=== PATIENT | female | born 1950 | race Caucasian/White ===

== ENCOUNTER 2018-04-29 07:52 | Outpatient (CLI) | payer OTHER | END 2018-04-29 08:03 | disposition home or self-care (01) | LOC: MAMO-SONO 07:52 | DX: Z12.31 Encounter for screening mammogram for malignant neoplasm of breast (principal); Z87.898 Personal history of other specified conditions; N60.11 Diffuse cystic mastopathy of right breast; N60.12 Diffuse cystic mastopathy of left breast ==

== ENCOUNTER 2022-11-28 20:31 | Emergency (ER) | payer OTHER ==
[~2022-11-28] VITALS: Ht 160 cm; Wt 54.4 kg
[2022-11-28] MEDS ORDERED: CRESTOR5 MG (20:55)
== END 2022-11-28 22:52 | disposition home or self-care (01) ==
LOC: ER 20:31
DX: T22.00XA Burn of unspecified degree of shoulder and upper limb, except wrist and hand, unspecified site, initial encounter (principal); W86.0XXA Exposure to domestic wiring and appliances, initial encounter; Y93.89 Activity, other specified; Y92.010 Kitchen of single-family (private) house as the place of occurrence of the external cause

== ENCOUNTER → 2022-11-28 | Outpatient (CLI) | payer OTHER ==
[~2022-11-28] MED LIST: CRESTOR5 MG
== END | disposition home or self-care (01) ==
LOC: MAMO-SONO 10:43
PROVIDERS: ATTEND Radiology Diagnostic Radiology
DX: Z12.31 Encounter for screening mammogram for malignant neoplasm of breast (principal); N60.11 Diffuse cystic mastopathy of right breast; N60.12 Diffuse cystic mastopathy of left breast